=== PATIENT | female | born 1955 | race Caucasian/White ===

== ENCOUNTER → 2018-04-29 07:46 | Outpatient (CLI) | payer OTHER, SELFPAY ==
[2018-04-29 09:17] LABS: Hemoglobin A1c 5.2 % (4.2-6.3)
[2018-04-29 09:22] LABS: Glucose GTT-30 minutes 135 mg/dL (110-170)
[2018-04-29 09:38] LABS: Glucose GTT- Fasting 85 mg/dL (74-106)
[2018-04-29 10:08] LABS: Glucose GTT- 1 Hour 138 mg/dL (120-170)
[2018-04-29 10:18] LABS: Insulin 75GTT - 60 min 128.1 mU/L (Not Estab)
[2018-04-29 10:18] LABS: Insulin 75GTT - 30 MIN 79.7 mU/L (Not Estab.)
[2018-04-29 10:19] LABS: Insulin 75GTT - Fasting 8.7 mU/L (2.6-37.6); Vitamin D,25 Hydroxy 23.2 ng/mL (29.95-100.01)
[2018-04-29 11:33] LABS: Glucose GTT- 2 Hour 99 mg/dL (70-120)
[2018-04-29 11:48] LABS: Insulin 75GTT - 120 min 67.4 mU/L (Not Estab.)
[2018-05-01 03:06] LABS: CHOLESTEROL TOTAL 230 mg/dL (100-199); HDL-C 69 mg/dL (>39); HDL-P TOTAL 39.8 umol/L (>=30.5); SMALL LDL-P 541 nmol/L (<=527); TRIGLYCERIDES 74 mg/dL (0-149)
[2018-05-01 11:11] LABS: LDL SIZE 21.4 nm (>20.5); LDL-C 146 mg/dL (0-99); LDL-P 1902 nmol/L (<1000); LP-IR SCORE ** 36 (<=45)
== END ==
PROVIDERS: Family Provider Nurse Practitioner; PCP Nurse Practitioner; Visit Provider Internal Medicine
DX: E78.4 Other hyperlipidemia (principal); E55.9 Vitamin D deficiency, unspecified; E88.81 Metabolic syndrome and other insulin resistance
CPT/HCPCS: 36415; 80061; 82306; 82951; 82952; 83036; 83525; 83704

== ENCOUNTER → 2018-08-01 10:09 | Outpatient (CLI) | payer OTHER, SELFPAY ==
--- NOTE | 2018-08-01 10:15 | BI_ITS ---
MAMMOGRAPHY - BILATERAL SCREENING REASON FOR EXAM: Female, 63 years old. Routine annual screening examination. PERTINENT HISTORY: Non-contributory. History of chronic bilateral nipple inversion. TECHNIQUE: Digital bilateral breast christen (3D mammographic acquisition) in the CC and MLO projections. 2-D mediolateral oblique (MLO) and craniocaudad (CC) views of both breasts were obtained. CAD: Full Field Digital Mammography with Computer Added Detection was performed. COMPARISON: Comparison is made with prior study dated July 30, 2017 and February 12, 2016. FINDINGS: Breast Composition: There are scattered areas of fibroglandular density. There are no dominant masses or suspicious calcifications. Stable scattered bilateral calcifications. Several of the calcifications of a lucent center suggestive of dural calcification. No other significant abnormalities are identified. There has been no significant change since the prior study. BI/SCREENING MAMM (CAD), BILAT IMPRESSION: Stable bilateral screening mammogram. Yearly follow-up mammogram recommended. (A) ASSESSMENT CATEGORY: BIRADS Category 2: Benign. A letter regarding these results will be sent to the patient by the facility within 30 days. Approximately 10% of breast cancers are not detected by mammography. A normal mammogram should not delay biopsy of a clinically suspicious abnormality. [id number] Electronically Signed: Kemal Lizarraga MD at 11:06 EST Tel [phone], Service support ,
== END ==
PROVIDERS: Family Provider Nurse Practitioner; PCP Nurse Practitioner; Visit Provider Obstetrics & Gynecology
DX: Z12.31 Encounter for screening mammogram for malignant neoplasm of breast (principal); Z13.820 Encounter for screening for osteoporosis
CPT/HCPCS: 77063; 77067

== ENCOUNTER → 2018-08-04 13:52 | Outpatient (CLI) | payer OTHER, SELFPAY ==
--- NOTE | 2018-08-04 14:03 | BD_ITS ---
STUDY: DUAL ENERGY X-RAY ABSORPTIOMETRY / DXA REASON FOR EXAM: Female, 63 years old. The patient is postmenopausal. Loss of height. TECHNIQUE: Bone Mineral Density (BMD) measurements of lumbar spine and bilateral hips were obtained. COMPARISON: Comparison is made with prior study dated April 23, 2016. FINDINGS: Lumbar Spine (L1-L4): g/cm2 (1.176) / T-score (0.1) / Z-score (1.5) Findings are suggestive of normal bone density with a low fracture risk. Left Femur Total: g/cm2 (1.004) / T-score (0.0) / Z-score (1.0) Left Femoral Neck: g/cm2 (1.000) / T-score (-0.3) / Z-score (1.1) Right Femur Total: g/cm2 (0.987) / T-score (-0.2) / Z-score (0.9) Right Femoral Neck: g/cm2 (0.937) / T-score (-0.7) / Z-score (0.6) The T-Scores on the most recent prior examination were: Lumbar Spine (L1-L4): There has been worsening of bone density since the previous examination. Left Femur Total: which represents a worsening of 1.1%. Right Femur Total: which represents a worsening of 1.3%. BD/Dexa Bone Density Study IMPRESSION: The patient is considered normal as outlined below according to World Jesus Organization (WHO) criteria with a low fracture risk. There has been worsening of bone density since the previous examination. Reference Information: The T-score is the number of standard deviations above or below the standard which is normal for young adults at their peak bone mineral density. The World Health Organization (WHO) interprets the T-scores as follows: Above -1 Normal bone density Between -1 and -2.5 Osteopenia Equal to / or below -2.5 Osteoporosis As a practical clinical guideline, osteopenia may be graded as follows: Mild -1 through -1.5 Moderate -1.6 through -2.0 Severe -2.1 through -2.4 The Z-score is the number of standard deviations above or below age-matched controls. A Z-score of less than -1.5 would be considered abnormal. References: 1. NIH Osteoporosis and Related Bone Diseases http://www.osteo.org 2. International Society for Clinical Densitometry http://www.iscd.org 3. National Osteoporosis Foundation http://www.nof.org Electronically Signed: Kemal Lizarraga MD at 15:35 EST Tel [phone], Service support ,
--- OUTSIDE RECORDS SUMMARY | 2018-09-29 18:33 | XMS RPT_ITS ---
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 30 - 100 ng/mL (75 - 250 nmol/L) Toxicity >100 ng/mL (>250 nmol/L) Performed By: #### L503.8055, L506.1000 #### [facility] [address] [place], [place], [id number] NMR LIPOPROFILE Collected: 04/29/2018 Status: F Source: [place] 8:03 AM [facility] [place] REPOSITORY TYPE CODE TESTS RESULT OUT OF RANGE REFERENCE UNITS LAB L3500.0250 LIPIDS Normal . LAB L3500.0300 100-199 mg/dL High CHOLESTEROL TOT 230 LAB L3500.0350 0-99 mg/dL High LDL-C 146 Result Comment: Optimal < 100 Above optimal 100 - 129 Borderline 130 - 159 High 160 - 189 Very high > 189 LDL-C is inaccurate if patient is non-fasting. LAB L3500.0400 >39 mg/dL HDL-C Normal 69 LAB L3500.0450 0-149 mg/dL TRIGLYCERIDES Normal 74 LAB L3500.0560 <1000 nmol/L High LDL-P 1902 Result Comment: Low < 1000 Moderate 1000 - 1299 Borderline-High 1300 - 1599 High 1600 - 2000 Very High > 2000 LAB L3500.0575 Normal LD HD PARTICLES . LAB L3500.0580 >=30.5 umol/L Normal HDL-P TOTAL 39.8 LAB L3500.0585 <=527 nmol/L High SMALL LDL-P 541 LAB L3500.0590 >20.5 nm Normal LDL SIZE 21.4 Result Comment: INTERPRETATIVE INFORMATION PARTICLE CONCENTRATION AND SIZE <--Lower CVD Risk Higher CVD Risk--> LDL AND HDL PARTICLES Percentile in Reference Population HDL-P (total) High 75th 50th 25th Low >34.9 34.9 30.5 26.7 <26.7 Small LDL-P Low 25th 50th 75th High <117 117 527 839 >839 LDL Size <-Large (Pattern A)-> <-Small (Pattern B)-> 23.0 20.6 20.5 19.0 Small LDL-P and LDL Size are associated with CVD risk, but not after LDL-P is taken into account. These assays were developed and their performance characteristics determined by [facility]. These assays have not been cleared by the US Food and Drug Administration. The clinical utility of these laboratory values have not been fully established. LAB L3500.0595 Normal INS RES/DIAB RK . LAB L3500.0875 <=45 Normal LP-IR SCORE 36 Result Comment: INSULIN RESISTANCE MARKER <--Insulin Sensitive Insulin Resistant--> Percentile in Reference Population Insulin Resistance Score LP-IR Score Low 25th 50th 75th High <27 27 45 63 >63 LP-IR Score is inaccurate if patient is non-fasting. The LP-IR score is a laboratory developed index that has been associated with insulin resistance and diabetes risk and should be used as one component of a physician's clinical assessment. The LP-IR score listed above has not been cleared by the US Food and Drug Administration. Performed at: [facility] [address] [id number] Director Corporate Security: Isma Pollard MD, Phone: [phone] Performed By: #### L3500.0000 #### [facility] (refer to report for specific site) refer to report for address and phone number INJ SCLEROSING SOLN, Observed: 09/29/2017 Status: F Source: [facility] 12415 10:50 AM HEALTH SYSTEM REPOSITORY Performed at [facility] APPROVED BY: Sourav Cavazos MD Procedure: Selective sclerotherapy of venulectasias, telangiectasias, and reticular veins in the left lower extremity. Date: 09/29/2017. Indication: 62y/o female with spider veins requesting sclerotherapy for cosmesis. Technique/Findings: Informed consent was obtained from the patient prior to the procedure. The distribution of the spider veins and telangiectasias was reviewed with the patient prior to the procedure to ensure adequate t reatment of the desired/symptomatic areas. The patient was placed in a prone position and the left leg was prepped in a sterile fashion with alcohol. Utilizing a foamed solution of 0.125% polidocanol, selective sclerotherapy was performed targeting the multiple telangiectasias and reticular veins in the left leg. During sclerotherapy there was effective replacement of the blood volume by the sclerotherapy agent at each site. Following sclerotherapy, each injection site was bandaged and dressed in the usual fashion. Compression stocking was then applied to the lower extremity. There were no apparent complications and the p atient tolerated the procedure well. The patient was given home-going instructions, which were reviewed at the end of the procedure. IMPRESSION: Technically successful selective sclerotherapy of the left leg. INJ SCLEROSING SOLN, Observed: 09/22/2017 Status: F Source: [facility]/[place] 52614 1:47 PM HEALTH SYSTEM REPOSITORY Performed at [facility] APPROVED BY: Sourav Cavazos MD Procedure: Selective sclerotherapy of venulectasias, telangiectasias, and reticular veins in the right lower extremity. Date: 09/22/2017. Brief History: 62y/o female requesting sclerotherapy for cosmesis. Technique/Findings: Informed consent was obtained from the patient prior to the procedure. The distribution of the spider veins and telangiectasias was reviewed with the patient prior to the procedure to ensure adequate t reatment of the desired/symptomatic areas. The patient was placed in a prone position and the right leg was prepped in a sterile fashion with alcohol. Utilizing a foamed solution of 0.125% polidocanol, selective sclerotherapy was performed targeting the multiple telangiectasias and reticular veins in the right leg. During sclerotherapy there was effective replacement of the blood volume by the sclerotherapy agent at each site. Following sclerotherapy, each injection site was bandaged and dressed in the usual fashion. Compression stocking was then applied to the lower extremity. There were no apparent complications and the p atient tolerated the procedure well. The patient was given home-going instructions, which were reviewed at the end of the procedure. IMPRESSION: Technically successful selective sclerotherapy of the right leg. ALLERGIES ALLERGIES DATE TYPE / CODE NAME / CODE REACTION SEVERITY SOURCE 08/05/2005 DRUG COPPER [facility] INGREDI/4195 Other [place] [address](SNOM[address]) /[id number] COPPER [facility] (SNOMED CT) Health System Repository ENCOUNTERS ENCOUNTERS ADMIT/DISCHARGE ACCOUNT NUMBER ADMITTING ENCOUNTER LOCATION SOURCE CLASS 08/08/2018 8040 Ambulatory Building:[facility] [place] Practices Repository 08/04/2018 [id number] [facility] ding:OPBD Repository 08/01/2018 [id number] [facility] ding:OPBI Repository 07/11/2018/07/12/20 [id number] Ambulatory [address] Main [place] Repository 04/29/2018 [id number] [facility] ding:LAB Repository 09/29/2017/09/29/19 [id number] Ambulatory [address] Other [place] Repository 09/29/2017/09/29/19 [id number] Ambulatory [address] MEDICAL Repository CENTERBuildi ng:AGCARDVEI N 09/22/2017 [id number] Ambulatory [facility] Repository 09/22/[id number] [facility] MEDICAL Repository CENTERBuildi ng:AGCARDVEI N 09/16/2017 [id number] [facility] ding:MASS Repository FUNCTIONAL STATUS FUNCTIONAL STATUS No Functional Status Records FoundEQUIPMENT EQUIPMENT No Equipment Records FoundPAYERS PAYERS ENCOUNTER GUARANTOR PAYER SUBSCRIBER SOURCE 08/08/2018 Nataly Zamora Primary Nataly Zamora OHIP Practices DeNardoDOB: Insurance:Medical DeNardoDOB: Repository [facility] [id number] [place] Number: [address] [place], [place] [id number] [place], [place] [address]Cpn: ([phone]) Date:[id number] [address]Tai: () Name:[facility] () [address], [place] [id number]: 08/08/2018 Secondary [place] OHIP Practices Insurance:Medical DeNardoDOB: Repository [facility] [id number] Number: [address] [place] [id number] [place], [place] Date:2005-09-06 [address]Afv: 330 [id number] (HP) Name:[facility] [address], [place] [id number]: 08/08/2018 Tertiary [place] OHIP Practices Insurance:[employer] [place] DeNardoDOB: [facility] Number: [id number] [address] [place] [address] Date:2006-01-04 - [place], [place] [id number] [id number]: ([phone]) Name:[address] Box (HP) [id number], [place] [id number]: 08/04/2018 NATALY A Primary NATALY A Luis [id number] Insurance:MEDICAL DENARDODOB: [facility] [id number], [place] Number: Repository [address]Cih: 330 [id number] [phone] () Date:[id number] [address] [address]DJ: 08/04/2018 Secondary NOT GIVENUNK Luis Insurance:SELF PAY [facility] Number: Effective Repository Date:2018-07-14 08/01/2018 Nataly A Primary DAWSON Luis [id number] Insurance:ANTHEMPolic DENARDODOB: [facility] y Number: [id number] [id number] Repository [address]Euk: [phone]) Date:9171-92-32JZ [phone] () [address]UFDSYPN, [place] [address]KJ: 08/01/2018 Secondary NOT GIVENUNK Luis Insurance:SELF PAY [facility] Number: Effective Repository Date:2018-07-14 04/29/2018 Nataly A Primary Nataly A Luis [id number] Insurance:MEDICAL DenardoDOB: [facility] [id number] Number: Repository [id number]: 330 [id number] [phone] () Date:[id number] [address] [address]UU: 04/29/2018 Secondary NOT GIVENUNK Luis Insurance:SELF PAY [facility] Number: Effective Repository Date:2018-04-27 09/29/2017 NATALY A DE Primary Insurance:O NATALY Zamora DE [facility] Number: [id number] Repository [place] [id number] [place], [place] Date: [address]Ryv: () 09/16/2017 Nataly A Primary NOT GIVENUNK Luis [id number] Insurance:SELF PAY [place] Number: Effective Repository [id number]: ([phone]) Date:2014-11-04 () SOCIAL HISTORY SOCIAL HISTORY No Social History Records FoundFAMILY HISTORY FAMILY HISTORY No Family History Records FoundADVANCE DIRECTIVES ADVANCE DIRECTIVES No Advanced Directives Records FoundINFORMATION SOURCE INFORMATION SOURCE DATE CREATED AUTHOR AUTHOR'S ORGANIZATION 08/24/2018 [facility]
== END ==
PROVIDERS: Family Provider Nurse Practitioner; PCP Nurse Practitioner; Visit Provider Obstetrics & Gynecology
DX: Z13.820 Encounter for screening for osteoporosis (principal)
CPT/HCPCS: 77080

== ENCOUNTER → 2019-08-15 12:11 | Outpatient (CLI) | payer BC, SELFPAY ==
--- NOTE | 2019-08-15 12:17 | BI_ITS ---
MAMMOGRAPHY - BILATERAL SCREENING REASON FOR EXAM: Female, 64 years old. Routine annual screening examination. PERTINENT HISTORY: Non-contributory. History of chronic bilateral nipple inversion. TECHNIQUE: Digital bilateral breast chon (3D mammographic acquisition) in the CC and MLO projections. 2-D mediolateral oblique (MLO) and craniocaudad (CC) views of both breasts were obtained. CAD: Full Field Digital Mammography with Computer Added Detection was performed. COMPARISON: Comparison is made with prior study August 01, 2018 and July 30, 2017. FINDINGS: Breast Composition: The breasts are heterogeneously dense, which may obscure small masses. There are no dominant masses or suspicious calcifications. Stable scattered bilateral calcifications. No focal clustering is seen. No other significant abnormalities are identified. There has been no significant change since the prior study. BI/SCREEN MAMM (CAD) W/CHON BILAT IMPRESSION: Stable bilateral screening mammogram. Yearly follow-up mammogram recommended. (A) ASSESSMENT CATEGORY: BIRADS Category 2: Benign. A letter regarding these results will be sent to the patient by the facility within 30 days. Approximately 10% of breast cancers are not detected by mammography. A normal mammogram should not delay biopsy of a clinically suspicious abnormality. [id number] Electronically Signed: Kemal Lizarraga, at 13:09 EST , Service support ,
== END ==
PROVIDERS: Family Provider Nurse Practitioner; PCP Nurse Practitioner; Referring Provider Obstetrics & Gynecology; Visit Provider Obstetrics & Gynecology
DX: Z12.31 Encounter for screening mammogram for malignant neoplasm of breast (principal)
CPT/HCPCS: 77063; 77067

== ENCOUNTER → 2019-12-06 | Outpatient (CLI) | payer BC, SELFPAY ==
--- NOTE | 2019-12-06 07:52 | CT_ITS ---
STUDY: CTA NECK WITH CONTRAST REASON FOR EXAM: Female, 64 years old. Carotid occlusion seen on US. Denies pain or problems. RADIATION DOSAGE (If Supplied By Facility): CTDIvol = ( 16.13 ) mGy, DLP = ( 965.94 ) mGycm TECHNIQUE: CT angiography with multi-detector data acquisition was performed from the aortic arch to the skull base following intravenous administration of 100mL [id number]. MIP images were reconstructed from the axial data set. Post-processing of the angiographic images was performed, with multiplanar reformation and 3D reconstruction. Individualized dose optimization techniques were used for this CT. COMPARISON: None. FINDINGS: AORTIC ARCH: There is atherosclerotic calcific plaque formation of the aortic arch and great vessels arising from the aortic arch, without a hemodynamically significant stenosis. There is a normal origin of the brachiocephalic, left common carotid, and left subclavian arteries. RIGHT CAROTID ARTERIES: Normal right common carotid artery (CCA). Normal right common carotid bulb. There is extensive atherosclerotic plaque formation of the origin of the right internal carotid artery with an estimated stenosis of greater than 70%. Normal visualized cervical portion of the right internal carotid artery. Normal origin of the right external carotid artery (ECA). LEFT CAROTID ARTERIES: Normal left common carotid artery (CCA). Normal left common carotid bulb. There is moderate atherosclerotic plaque formation of the origin of the left internal carotid artery with an estimated stenosis of 50-69% stenosis. Normal visualized cervical portion of the left internal carotid artery. Normal origin of the left external carotid artery (ECA). VERTEBRAL ARTERIES: Normal bilateral vertebral arteries. CT/CTA Neck W/WO Contrast IMPRESSION: Calcific plaques at the origin of the right internal carotid artery causing greater than 70% narrowing. Calcific plaque at the origin of the left internal carotid artery causing 50-69% stenosis. Electronically Signed: Kemal Lizarraga, at 13:39 EDT , Service support ,
[2019-12-06 08:06] LABS: CREATININE FINGERSTICK 0.7 mg/dL (0.55-1.02); EGFR FINGERSTICK > 60.0000 mL/min (>60)
== END | disposition home or self-care (01) ==
LOC: CT 07:51
PROVIDERS: PCP Nurse Practitioner; Referring Provider Internal Medicine; Visit Provider Internal Medicine
DX: I65.23 Occlusion and stenosis of bilateral carotid arteries (principal)
CPT/HCPCS: 70498; Q9967

== ENCOUNTER → 2020-04-05 | Outpatient (CLI) | payer BC, SELFPAY ==
[2020-04-05 09:55] LABS: AST(SGOT) 23 U/L (15-37); Alanine Aminotransfer ALT/SGPT 40 U/L (13-56); Alkaline Phosphatase 70 U/L (45-117); Bilirubin, Direct 0.28 mg/dL (0.00-0.30); Cholesterol 155 mg/dL (200); Globulin 3.6 g/dL (2.2-4.2); High Density Lipoprotein 69 mg/dL; Protein, Total 7.6 g/dL (6.4-8.2); Triglycerides 74 mg/dL; Very Low Density Lipoprotein 15 mg/dL (5-40)
== END | disposition home or self-care (01) ==
LOC: LAB 09:02
PROVIDERS: PCP Internal Medicine; Referring Provider Internal Medicine; Visit Provider Internal Medicine
DX: E78.49 Other hyperlipidemia (principal)
CPT/HCPCS: 36415; 80061; 80076

== ENCOUNTER → 2020-12-10 07:17 | Outpatient (CLI) | payer MEDICARE, SELFPAY ==
[2020-11-25 13:57] VITALS: BMI 25.8
--- NOTE | 2020-12-10 07:24 | BI_ITS ---
MAMMOGRAPHY - BILATERAL SCREENING 3-D TOMOSYNTHESIS REASON FOR EXAM: Female, 65 years old. Routine screening PERTINENT HISTORY: No significant family history. TECHNIQUE: 2-D mammograms and 3-D Tomosynthesis of the breast (s) were performed. CAD was performed. COMPARISON: 08/15/2019 FINDINGS: The breast composition is heterogeneously dense that can obscure small breast masses. Scattered benign calcifications are seen. No dense spiculated masses or suspicious microcalcifications are identified. No architectural distortion is identified. There is no skin thickening or retraction. There has been no significant change since the prior study. BI/SCRN MAMM (CAD)W/CHON BILAT IMPRESSION: No mammographic signs of malignancy. Routine yearly mammograms recommended. ASSESSMENT CATEGORY: BIRADS Category 2: Benign. A letter regarding these results will be sent to the patient by the facility within 30 days. FOLLOW UP RECOMMENDATION: Yearly follow up mammogram recommended. (A) Approximately 10% of breast cancers are not detected by mammography. A normal mammogram should not delay biopsy of a clinically suspicious abnormality. Electronically Signed: Dante Sutherland MD at 9:12 EDT , Service support ,
--- NOTE | 2020-12-10 07:43 | VDLE_ITS ---
Reason For Study: Pain RIGHT LEFT CFV is compressible, spontaneous, phasic, CFV is compressible, spontaneous, phasic, competent and demonstrates normal competent, and demonstrates normal augmentation. augmentation. FV is compressible, spontaneous, phasic, FV is compressible, spontaneous, phasic, competent and demonstrates normal competent and demonstrates normal augmentation. augmentation. POP V is compressible, spontaneous, phasic, POP V is compressible, spontaneous, phasic, competent and demonstrates normal competent and demonstrates normal augmentation. augmentation. T/P Trunk is compressible. T/P Trunk is compressible. PTV is compressible. PTV is compressible. RT PerV is compressible. LT PerV is compressible. SFJ is competent and measures 0.93 x 0.98 cm. SFJ is competent and measures 0.75 x 0.82 cm. GSV proximal thigh measures 0.40 x 0.39 cm. GSV proximal thigh measures 0.48 x 0.45 cm. GSV above knee is INCOMPETENT for greater GSV at knee measures 0.21 x 0.18 cm. than 0.5 seconds. GSV is competent throughout. GSV at knee measures 0.32 x 0.33 cm. SSV at junction is competent and measures GSV below knee is competent. 0.14 x 0.14 cm. SSV proximal calf is competent and measures 0.09 x 0.09 cm. Procedure This is a venous duplex using B-mode, color flow and spectral Doppler. Exam performed in department. VL/Venous Duplex US - Kole Extrem Interpretation Summary No evidence for acute deep venous thrombosis bilateral lower extremities with p atent and compressible bilateral great saphenous veins. Incompetent right great saphenous vein above the knee Competent left great saphenous vein Venous dimensions as noted. Ordering Physician: Salinas Oswald Referring Physician: Salinas Oswald Performed By: Daphne Acosta RVT
--- NOTE | 2020-12-10 07:43 | CDU_ITS ---
Reason For Study: Carotid stenosis Rt. Velocities/BP Lt. Velocities/BP Prox CCA 74.7/14.7 cm/sec. Prox CCA 93/20 cm/sec. Mid CCA 81.2/16 cm/sec. Mid CCA 83.9/20 cm/sec. Dist CCA 78.6/20 cm/sec. Dist CCA 70.8/14.7 cm/sec. Prox ICA 74.7/21.3 cm/sec. Prox ICA 57.5/16.8 cm/sec. Mid ICA 83.9/29.1 cm/sec. Mid ICA 84.9/30 cm/sec. Dist ICA 104.7/30.4 cm/sec. Dist ICA 91.5/34.4 cm/sec. Rt. ICA/CCA = 1.33. Lt. ICA/CCA = 1.09. Prox ECA 85.2/9.5 cm/sec. Prox ECA 56.4/6.9 cm/sec. Rt. Vert. 70.8/21.3 cm/sec. Lt. Vert. 71.7/22.3 cm/sec. Right Extracranial There is homogeneous, smooth atherosclerotic plaque noted in the right common carotid artery. There is heterogeneous, irregular atherosclerotic plaque noted in the right internal carotid artery. There is intimal thickening but no significant atherosclerotic plaque noted in the right external carotid artery. Antegrade flow is noted in the right vertebral artery. Left Extracranial There is homogeneous, smooth atherosclerotic plaque noted in the left common carotid artery. There is heterogeneous, irregular atherosclerotic plaque noted in the left internal carotid artery. There is intimal thickening but no significant atherosclerotic plaque noted in the left external carotid artery. Antegrade flow is noted in the left vertebral artery. Procedure Carotid Duplex 55341. This is a Carotid Duplex examination using B-mode, color flow and specral Doppler. Exam performed in department. VL/Carotid Duplex Ultrasound Interpretation Summary Irregular calcific plague at the proximal right internal carotid with <50% sten osis <50% stenosis right external carotid Irregular calcific plague at the proximal left internal carotid with 50% stenos is <50% stenosis left external carotid Patent, antegrade vertebrals bilaterally No change from 03/26/17 Ordering Physician: Ramsey Starr Referring Physician: Salinas Oswald Performed By: Daphne Acosta RVT
== END ==
PROVIDERS: PCP Internal Medicine; Referring Provider Obstetrics & Gynecology; Visit Provider Surgery
DX: I65.21 Occlusion and stenosis of right carotid artery (principal); I83.813 Varicose veins of bilateral lower extremities with pain; Z12.31 Encounter for screening mammogram for malignant neoplasm of breast
CPT/HCPCS: 77063; 77067; 93880; 93970

== ENCOUNTER → 2020-12-12 08:48 | Outpatient (CLI) | payer MEDICARE, SELFPAY ==
[2020-11-25 13:57] VITALS: BMI 25.8
--- NOTE | 2020-12-12 08:50 | BD_ITS ---
STUDY: DUAL ENERGY X-RAY ABSORPTIOMETRY / DXA REASON FOR EXAM: Female, 65 years old. Post menopausal TECHNIQUE: Bone Mineral Density (BMD) measurements of lumbar spine and bilateral hips were obtained. COMPARISON: Comparison is made with prior study dated 08/04/2018. FINDINGS: Lumbar Spine (L1-L4): g/cm2 (1.295) / T-score (1.0) / Z-score (2.5) Findings are suggestive of normal bone density with a low fracture risk. Left Femur Total: g/cm2 (1.001) / T-score (0.0) / Z-score (1.2) Left Femoral Neck: g/cm2 (1.013) / T-score (-0.2) / Z-score (1.3) Right Femur Total: g/cm2 (0.973) / T-score (-0.3) / Z-score (0.9) Right Femoral Neck: g/cm2 (0.929) / T-score (0.8) / Z-score (0.7) The T-Scores on the most recent prior examination were: Lumbar Spine (L1-L4): There has been worsening of bone density since the previous examination. Left Femur Total: which represents a worsening of 0.3%. Right Femur Total: which represents a worsening of 1.4%. BD/Dexa Bone Density Study IMPRESSION: The patient is considered normal as outlined below according to World Jesus Organization (WHO) criteria with a low fracture risk. There has been worsening of bone density since the previous examination. Reference Information: The T-score is the number of standard deviations above or below the standard which is normal for young adults at their peak bone mineral density. The World Health Organization (WHO) interprets the T-scores as follows: Above -1 Normal bone density Between -1 and -2.5 Osteopenia Equal to / or below -2.5 Osteoporosis As a practical clinical guideline, osteopenia may be graded as follows: Mild -1 through -1.5 Moderate -1.6 through -2.0 Severe -2.1 through -2.4 The Z-score is the number of standard deviations above or below age-matched controls. A Z-score of less than -1.5 would be considered abnormal. References: 1. NIH Osteoporosis and Related Bone Diseases www osteo.org 2. International Society for Clinical Densitometry www iscd.org 3. National Osteoporosis Foundation www nof.org Electronically Signed: Kemal Lizarraga MD at 10:49 EDT , Service support ,
== END ==
PROVIDERS: PCP Internal Medicine; Referring Provider Internal Medicine; Visit Provider Internal Medicine
DX: Z78.0 Asymptomatic menopausal state (principal)
CPT/HCPCS: 77080

== ENCOUNTER → 2020-12-26 07:47 | Outpatient (CLI) | payer MEDICARE, SELFPAY ==
[2020-12-26 07:34] VITALS: BMI 25.9
[2020-12-26 09:16] LABS: Absolute Lymphocyte Count 2.18 X10^3/uL (0.83-4.51); Absolute Neutrophil Count 3.2 X10^3/uL (2.0-7.7); Basophil# 0.09 X10^3/uL; Basophil% 1.3 % (0-1); Eosinophil# 0.82 X10^3/uL; Eosinophils% 11.9 % (0-5); Hematocrit 44.4 % (37-47); Hemoglobin 14.9 g/dL (12.0-15.0); Lymphocyte # 2.18 X10^3/ul (0.83-4.51); Lymphocyte % 31.7 % (19-41); Mean Corp Hgb Conc 33.6 g/dL (32-36); Mean Corpuscular Hgb 30.2 pg (27.0-32.0); Mean Corpuscular Volume 89.9 fL (81-99); Mean Platelet Vol. 9.8 fl (6.2-12.0); Monocyte# 0.56 X10^3/uL; Monocyte% 8.1 % (0-10); NRBC Flagged by Analyzer 0 % (0-5); Neutrophil # 3.22 X10^3/uL (2.7-7.7); Neutrophil % 46.9 % (47-70); Platelet Count 321 K/mm3 (150-450); RBC Distribution Width CV 12.2 % (11.6-14.6); RBC Distribution Width SD 40.6 fl (35.1-43.9); Red Blood Count 4.94 M/mm3 (4.2-5.4); White Blood Count 6.9 K/mm3 (4.4-11.0)
[2020-12-26 09:55] LABS: AST(SGOT) 27 U/L (15-37); Alanine Aminotransfer ALT/SGPT 50 U/L (13-56); Albumin, Serum 3.9 g/dL (3.2-5.0); Alkaline Phosphatase 82 U/L (45-117); Anion Gap 4 (5-15); BUN 14 mg/dL (7-18); BUN/Creat Ratio 22.1 RATIO (10-20); Calcium,Total 9.1 mg/dL (8.5-10.1); Chloride 106 mmol/L (98-107); Cholesterol 194 mg/dL (200); Creatinine, Serum 0.63 mg/dL (0.55-1.02); EST Glomerular Filtration Rate 100 mL/min (>60); Est Glom Filt Rate - Afr Amer 121 mL/min (>60); Globulin 3.9 g/dL (2.2-4.2); Glucose 86 mg/dL (74-106); High Density Lipoprotein 78 mg/dL; Potassium 4.5 mmol/L (3.5-5.1); Protein, Total 7.8 g/dL (6.4-8.2); Sodium Level 140 mmol/L (136-145); Triglycerides 102 mg/dL; Very Low Density Lipoprotein 20 mg/dL (5-40)
[2020-12-26 11:30] LABS: Vitamin D,25 Hydroxy 22.8 ng/mL
== END ==
PROVIDERS: PCP Internal Medicine; Referring Provider Internal Medicine; Visit Provider Internal Medicine
DX: E55.9 Vitamin D deficiency, unspecified (principal); E78.5 Hyperlipidemia, unspecified
CPT/HCPCS: 36415; 80053; 80061; 82306; 85025

== ENCOUNTER 2021-01-17 08:47 | Day surgery (SDC) | payer MEDICARE, SELFPAY ==
[2020-11-25 13:57] VITALS: BMI 25.8
[2020-12-26 07:34] VITALS: BMI 25.9
[2021-01-17] VITALS (7 sets, daily range): BP systolic 118–139; BP diastolic 60–73; PULSE 57–71; RESP 16; TEMP 36.3–36.5; O2SAT 99–100; BMI 25.6
[2021-01-17] MEDS: Lactated Ringers 1,000 ML 100 ML IV (09:21)
--- NOTE | 2021-01-17 10:17 | PCM.HP.STD ---
HPI - General HPI Narrative JANICE DUTTON, is a 65 F who presents for screening colonoscopy today. Her previous one was approximately 5 years ago. She has a personal history of colon polyps. There is no family history of colon cancer. She otherwise enjoys good health. No bright red blood per rectum or melena. No abdominal pain. No unexpected weight loss. [facility] Medical History (Updated 01/17/21 @ 10:[address] Ramsey Starr MD) Anxiety Arthritis Bilateral carotid artery stenosis Carpal tunnel syndrome Diverticulosis Hyperlipemia Hyperlipidemia Post-menopausal Restless legs Stenosis of left carotid artery Varicose veins of both lower extremities with pain Vitamin D deficiency Wears contact lenses Wears glasses Home Medications aspirin 81 mg tablet,delayed release 81 mg PO DAILY 11/25/20 [History Last Taken Unknown] coenzyme Q10 100 mg capsule 100 mg PO DAILY 11/25/20 [History Last Taken Unknown] magnesium oxide 400 mg (241.3 mg magnesium) tablet 400 mg PO BID tablet 11/25/20 [History Last Taken Unknown] multivitamin 1 tablet PO DAILY 11/25/20 [History Last Taken Unknown] rosuvastatin 10 mg tablet 10 mg PO DAILY 11/25/20 [History Last Taken Unknown] turmeric root extract 1,053 mg tablet 2,600 mg PO DAILY tablet 11/25/20 [History Last Taken Unknown] terbinafine HCl 250 mg PO DAILY 01/14/21 [History Last Taken Unknown] Allergy/AdvReac Type Severity Reaction Status Date / Time copper Allergy Mild unknown Verified 01/17/21 09:12 Family History Father Brain aneurysm Other Anxiety Diabetes Kidney disease Surgical History (Updated 01/14/21 @ 10:02 by Teresita Michael) History of tubal ligation Hx of [facility] Social History (Updated 12/26/20 @ 08:[address] Ramsey Starr MD) Smoking Status: Never smoker alcohol intake: never substance use type: does not use caffeine: Yes what type of physical activity do you participate in: walking, bicycling and aerobics frequency: 3-4 times per week ROS Constitutional Constitutional: Reports systems reviewed and no addt'l complaints, except as documented Cardiovascular Cardiovascular: Denies chest pain Respiratory/Chest Respiratory/Chest: Denies shortness of breath at rest Gastrointestinal Gastrointestinal: Denies abdominal pain, change in bowel habits, hematochezia or melena Vital Signs Vital Signs Vital Signs: 01/17/21 09:13 Temperature 97.7 F L Temperature Source Temporal Pulse Rate 67 Respiratory Rate 16 Respiratory Pattern Normal Blood Pressure 130/68 H Blood Pressure Mean 88 Blood Pressure Source Monitor Blood Pressure Position Semi-Fowlers Blood Pressure Location Right Arm Pulse Ox 99 Oxygen Delivery Method Room Air Physical Exam Const alert, oriented x3 and no apparent distress General Appearance: cooperative and comfortable Eyes General Eye: normal appearance of both eyes Neck General: normal visual inspection Chest inspection of chest normal Resp Effort and Inspection: able to speak in complete sentences and symmetric chest movement Auscultation: clear to auscultation bilaterally Cardio regular rate and regular rhythm GI soft to palpation, non-tender and non-distended Extremity no calf tenderness Neuro oriented x3 Psych thought process normal Assessment & Plan Assessment/Plan (1) Personal history of colonic polyps: PLAN: The patient presents via open access to pursue a colonoscopy with possible biopsy or polypectomy as indicated. She is aware of the technique, benefit, risk, alternatives. She has had an opportunity to ask and have questions answered. We will proceed as noted. Ramsey Starr M.D., F.A.C.S.
--- NOTE | 2021-01-17 10:41 | OP.CCLET_ITS ---
01/17/2021 Salinas Oswald MD [address] [place] [address] [place] [address] Re : Colonoscopy procedure for Nataly Elise Dear Dr. Oswald This procedure was performed on Sunday, January 17, 2021. My impressions and recommendations are as follows: Impressions : - The entire examined colon is normal. - No specimens collected. Recommendations : - Discharge patient to home. - Resume previous diet. - Continue present medications. - Repeat colonoscopy in 10 years for screening purposes. No polyps on current examination. My findings are described in the full procedure note, which is enclosed. If I can be of further assistance, please feel free to contact me at Doctor phone number(s): Work: . Sincerely, Ramsey Starr MD 01/17/2021 10:40:55 AM This report has been signed electronically.
--- NOTE | 2021-01-17 10:41 | OP.COLON_ITS ---
Patient Name: Nataly Elise Procedure Date: 01/17/2021 10:14 AM Date of : 1955 Age: 65 Procedure: Colonoscopy Indications: High risk colon cancer surveillance: Personal history of colonic polyps Providers: Ramsey Starr MD Medicines: See the Anesthesia note for documentation of the administered medications Patient Profile: Last Colonoscopy: 5 years ago. Complications: No immediate complications. Procedure: Pre-Anesthesia Assessment: - Prior to the procedure, a History and Physical was performed, and patient medications and allergies were reviewed. The patient's tolerance of previous anesthesia was also reviewed. The risks and benefits of the procedure and the sedation options and risks were discussed with the patient. All questions were answered, and informed consent was obtained. Prior Anticoagulants: The patient has taken no previous anticoagulant or antiplatelet agents. ASA Grade Assessment: II - A patient with mild systemic disease. After reviewing the risks and benefits, the patient was deemed in satisfactory condition to undergo the procedure. After I obtained informed consent, the scope was passed under direct vision. Throughout the procedure, the patient's blood pressure, pulse, and oxygen saturations were monitored continuously. The Colonoscope was introduced through the anus and advanced to the cecum, identified by appendiceal orifice and ileocecal valve. The colonoscopy was performed without difficulty. The patient tolerated the procedure well. The quality of the bowel preparation was good. The ileocecal valve and the appendiceal orifice were photographed. Scope In: 10:24:34 AM Scope Withdrawal Time 0 hours 6 minutes 17 seconds Scope Out: 10:36:36 AM Total Procedure Duration Time 0 hours 12 minutes 2 seconds Findings: The perianal and digital rectal examinations were normal. The colon (entire examined portion) appeared normal. Impression: - The entire examined colon is normal. - No specimens collected. Recommendation: - Discharge patient to home. - Resume previous diet. - Continue present medications. - Repeat colonoscopy in 10 years for screening purposes. No polyps on current examination. Procedure Code(s): --- Professional --- 99776, Colonoscopy, flexible; diagnostic, including collection of specimen(s) by brushing or washing, when performed (separate procedure) Diagnosis Code(s): --- Professional --- Z86.010, Personal history of colonic polyps CPT copyright 2017 [employer]. All rights reserved. The codes documented in this report are preliminary and upon heavy equipment plumbing supervisor review may be revised to meet current compliance requirements. Ramsey Starr MD 01/17/2021 10:40:55 AM This report has been signed electronically. Number of Addenda: 0 Note Initiated On: 01/17/2021 10:14 AM
== END 2021-01-17 11:48 ==
LOC: EN 08:48 → AC 08:50
PROVIDERS: PCP Internal Medicine; Referring Provider Internal Medicine; Visit Provider Surgery
PROC: 0DJD8ZZ Inspection of Lower Intestinal Tract, Via Natural or Artificial Opening Endoscopic (ICD-10-PCS; CPT 45378; principal; 2021-01-17 10:10)
DX: Z12.11 Encounter for screening for malignant neoplasm of colon (principal); Z86.010 Personal history of colon polyps; M19.90 Unspecified osteoarthritis, unspecified site; E78.5 Hyperlipidemia, unspecified; Z79.899 Other long term (current) drug therapy; Z79.82 Long term (current) use of aspirin
CPT/HCPCS: G0105; J7120; J2405

== ENCOUNTER → 2021-02-10 09:15 | Outpatient (CLI) | payer MEDICARE, SELFPAY ==
[2021-01-17 09:13] VITALS: BMI 25.6
[2021-02-10 10:06] LABS: AST(SGOT) 18 U/L (15-37); Alanine Aminotransfer ALT/SGPT 28 U/L (13-56); Albumin, Serum 3.7 g/dL (3.2-5.0); Alkaline Phosphatase 90 U/L (45-117); Bilirubin, Direct 0.23 mg/dL (0.00-0.30); Globulin 3.8 g/dL (2.2-4.2); Protein, Total 7.5 g/dL (6.4-8.2)
== END ==
PROVIDERS: PCP Internal Medicine; Referring Provider Podiatrist; Visit Provider Podiatrist
DX: B35.1 Tinea unguium (principal); B35.3 Tinea pedis
CPT/HCPCS: 36415; 80076

== ENCOUNTER → 2021-07-15 06:53 | Outpatient (CLI) | payer MEDICARE, SELFPAY ==
[2021-07-15 08:58] LABS: ALB/GLOB Ratio 0.9 RATIO (0.9-2.4); AST(SGOT) 19 U/L (15-37); Alanine Aminotransfer ALT/SGPT 32 U/L (13-56); Albumin, Serum 3.6 g/dL (3.2-5.0); Alkaline Phosphatase 73 U/L (45-117); Anion Gap 4 (5-15); BUN 15 mg/dL (7-18); BUN/Creat Ratio 22.9 RATIO (10-20); Calcium,Total 9.4 mg/dL (8.5-10.1); Chloride 107 mmol/L (98-107); Cholesterol 192 mg/dL (200); Creatinine, Serum 0.66 mg/dL (0.55-1.02); EST Glomerular Filtration Rate 96 mL/min (>60); Est Glom Filt Rate - Afr Amer 116 mL/min (>60); Globulin 4.1 g/dL (2.2-4.2); Glucose 90 mg/dL (74-106); High Density Lipoprotein 74 mg/dL; Potassium 4.2 mmol/L (3.5-5.1); Protein, Total 7.7 g/dL (6.4-8.2); Sodium Level 140 mmol/L (136-145); Triglycerides 102 mg/dL; Very Low Density Lipoprotein 20 mg/dL (5-40)
[2021-07-15 09:33] LABS: Vitamin D,25 Hydroxy 24.7 ng/mL
== END ==
PROVIDERS: PCP Internal Medicine; Referring Provider Internal Medicine; Visit Provider Internal Medicine
DX: E55.9 Vitamin D deficiency, unspecified (principal); E78.5 Hyperlipidemia, unspecified
CPT/HCPCS: 36415; 80053; 80061; 82306

== ENCOUNTER → 2022-01-14 | Outpatient (CLI) | payer MEDICARE, OTHER, SELFPAY ==
[2022-01-14 17:02] LABS: Absolute Lymphocyte Count 2.21 X10^3/uL (0.83-4.51); Absolute Neutrophil Count 4.1 X10^3/uL (2.0-7.7); Basophil# 0.07 X10^3/uL; Basophil% 0.9 % (0-1); Eosinophil# 0.66 X10^3/uL; Eosinophils% 8.6 % (0-5); Hematocrit 39.9 % (37-47); Hemoglobin 13.6 g/dL (12.0-15.0); Lymphocyte # 2.21 X10^3/ul (0.83-4.51); Lymphocyte % 28.8 % (19-41); Mean Corp Hgb Conc 34.1 g/dL (32-36); Mean Corpuscular Hgb 30.2 pg (27.0-32.0); Mean Corpuscular Volume 88.7 fL (81-99); Mean Platelet Vol. 9.7 fl (6.2-12.0); Monocyte% 7.8 % (0-10); NRBC Flagged by Analyzer 0 % (0-5); Neutrophil # 4.11 X10^3/uL (2.7-7.7); Neutrophil % 53.6 % (47-70); Platelet Count 317 K/mm3 (150-450); RBC Distribution Width CV 12.3 % (11.6-14.6); RBC Distribution Width SD 39.8 fl (35.1-43.9); White Blood Count 7.7 K/mm3 (4.4-11.0)
[2022-01-14 17:09] LABS: AST(SGOT) 28 U/L (15-37); Alanine Aminotransfer ALT/SGPT 37 U/L (13-56); Albumin, Serum 3.7 g/dL (3.2-5.0); Alkaline Phosphatase 67 U/L (45-117); Anion Gap 6 (5-15); BUN 13 mg/dL (7-18); BUN/Creat Ratio 21.8 RATIO (10-20); Calcium,Total 9.6 mg/dL (8.5-10.1); Chloride 104 mmol/L (98-107); Cholesterol 172 mg/dL (200); EST Glomerular Filtration Rate 107 mL/min (>60); Est Glom Filt Rate - Afr Amer 130 mL/min (>60); Globulin 3.8 g/dL (2.2-4.2); Glucose 92 mg/dL (74-106); High Density Lipoprotein 68 mg/dL; Potassium 3.9 mmol/L (3.5-5.1); Protein, Total 7.5 g/dL (6.4-8.2); Sodium Level 137 mmol/L (136-145); Triglycerides 108 mg/dL; Very Low Density Lipoprotein 22 mg/dL (5-40)
[2022-01-14 17:28] LABS: Vitamin D,25 Hydroxy 37.3 ng/mL
== END | disposition home or self-care (01) ==
LOC: BIMLAB 15:50
PROVIDERS: PCP Internal Medicine; Referring Provider Internal Medicine; Visit Provider Internal Medicine
DX: E78.2 Mixed hyperlipidemia (principal); E55.9 Vitamin D deficiency, unspecified
CPT/HCPCS: 36415; 80053; 80061; 82306; 85025

== ENCOUNTER → 2022-04-22 | Outpatient (CLI) | payer MEDICARE, OTHER, SELFPAY ==
--- NOTE | 2022-04-22 13:38 | BI_ITS ---
MAMMOGRAPHY - BILATERAL SCREENING 3-D TOMOSYNTHESIS REASON FOR EXAM: Female, 66 years old. SCREENING PERTINENT HISTORY: No significant family history. TECHNIQUE: 2-D mammograms and 3-D Tomosynthesis of the breast (s) were performed. CAD was performed. COMPARISON: 12/10/2020 FINDINGS: The breast composition is heterogeneously dense that can obscure small breast masses. Scattered benign calcifications are seen. No dense spiculated masses or suspicious microcalcifications are identified. No architectural distortion is identified. There is no skin thickening or retraction. There has been no significant change since the prior study. BI/SCRN MAMM (CAD)W/CHON BILAT IMPRESSION: No mammographic signs of malignancy. Routine yearly mammograms recommended. ASSESSMENT CATEGORY: BIRADS Category 1: Negative. A letter regarding these results will be sent to the patient by the facility within 30 days. FOLLOW UP RECOMMENDATION: Yearly follow up mammogram recommended. (A) Approximately 10% of breast cancers are not detected by mammography. A normal mammogram should not delay biopsy of a clinically suspicious abnormality. Electronically Signed: Saurav Villafuerte MD at 14:33 EDT ,
== END | disposition home or self-care (01) ==
PROVIDERS: PCP Internal Medicine; Visit Provider Obstetrics & Gynecology
DX: Z12.31 Encounter for screening mammogram for malignant neoplasm of breast (principal)
CPT/HCPCS: 77063; 77067

== ENCOUNTER → 2022-05-19 | Outpatient (CLI) | payer MEDICARE, OTHER, SELFPAY ==
[2022-05-19 12:18] LABS: Absolute Lymphocyte Count 1.52 X10^3/uL (0.83-4.51); Absolute Neutrophil Count 4.2 X10^3/uL (2.0-7.7); Basophil# 0.04 X10^3/uL; Basophil% 0.6 % (0-1); Eosinophil# 0.11 X10^3/uL; Eosinophils% 1.6 % (0-5); Hematocrit 42.3 % (37-47); Hemoglobin 14.2 g/dL (12.0-15.0); Lymphocyte # 1.52 X10^3/ul (0.83-4.51); Lymphocyte % 21.7 % (19-41); Mean Corp Hgb Conc 33.6 g/dL (32-36); Mean Corpuscular Hgb 30.6 pg (27.0-32.0); Mean Corpuscular Volume 91.2 fL (81-99); Mean Platelet Vol. 10.2 fl (6.2-12.0); Monocyte# 1.16 X10^3/uL; Monocyte% 16.5 % (0-10); NRBC Flagged by Analyzer 0 % (0-5); Neutrophil # 4.18 X10^3/uL (2.7-7.7); Neutrophil % 59.5 % (47-70); Platelet Count 259 K/mm3 (150-450); RBC Distribution Width CV 12.3 % (11.6-14.6); RBC Distribution Width SD 40.8 fl (35.1-43.9); Red Blood Count 4.64 M/mm3 (4.2-5.4)
[2022-05-19 12:45] LABS: ALB/GLOB Ratio 0.9 RATIO (0.9-2.4); AST(SGOT) 22 U/L (15-37); Alanine Aminotransfer ALT/SGPT 31 U/L (13-56); Albumin, Serum 3.5 g/dL (3.2-5.0); Alkaline Phosphatase 63 U/L (45-117); Anion Gap 8 (5-15); BUN 9 mg/dL (7-18); BUN/Creat Ratio 11.1 RATIO (10-20); Calcium,Total 9.3 mg/dL (8.5-10.1); Chloride 102 mmol/L (98-107); Cholesterol 143 mg/dL (200); Creatinine, Serum 0.81 mg/dL (0.55-1.02); EST Glomerular Filtration Rate 75 mL/min (>60); Est Glom Filt Rate - Afr Amer 91 mL/min (>60); Globulin 4.1 g/dL (2.2-4.2); Glucose 93 mg/dL (74-106); High Density Lipoprotein 68 mg/dL; Potassium 4.2 mmol/L (3.5-5.1); Protein, Total 7.6 g/dL (6.4-8.2); Sodium Level 137 mmol/L (136-145); Triglycerides 81 mg/dL; Very Low Density Lipoprotein 16 mg/dL (5-40)
== END | disposition home or self-care (01) ==
PROVIDERS: PCP Internal Medicine; Referring Provider Internal Medicine; Visit Provider Internal Medicine
DX: I65.22 Occlusion and stenosis of left carotid artery (principal); E78.5 Hyperlipidemia, unspecified; R09.81 Nasal congestion
CPT/HCPCS: 36415; 80053; 80061; 85025; 87635; U0003; U0005

== ENCOUNTER → 2023-02-09 | Outpatient (CLI) | payer MEDICARE, OTHER, SELFPAY ==
--- NOTE | 2023-02-09 14:52 | CDU_ITS ---
Reason For Study: Carotid Artery Stenosis Rt. Velocities/BP Lt. Velocities/BP Prox CCA 85.1/13.9 cm/sec. Prox CCA 64.1/15.7 cm/sec. Mid CCA 79.0/15.1 cm/sec. Mid CCA 82.8/20.1 cm/sec. Dist CCA 60.7/13.5 cm/sec. Dist CCA 71.8/20.1 cm/sec. Prox ICA 67.4/23.0 cm/sec. Prox ICA 45.8/15.2 cm/sec. Mid ICA 82.5/26.7 cm/sec. Mid ICA 66.6/22.1 cm/sec. Dist ICA 104.7/34.4 cm/sec. Dist ICA 76.1/22.1 cm/sec. Rt. ICA/CCA = 1.3. Lt. ICA/CCA = 0.9. Prox ECA 89.1/10.7 cm/sec. Prox ECA 87.2/10.2 cm/sec. Rt. Vert. 49.3/11.6 cm/sec. Lt. Vert. 38.9/10.1 cm/sec. Right Extracranial There is heterogeneous, smooth atherosclerotic plaque noted in the right common carotid artery. There is intimal thickening but no significant atherosclerotic plaque noted in the right internal carotid artery. There is intimal thickening but no significant atherosclerotic plaque noted in the right external carotid artery. Antegrade flow is noted in the right vertebral artery. There is heterogeneous, irregular atherosclerotic plaque noted in the right bulb. Left Extracranial There is homogeneous, smooth atherosclerotic plaque noted in the left common carotid artery. There is heterogeneous, irregular atherosclerotic plaque noted in the left internal carotid artery. There is intimal thickening but no significant atherosclerotic plaque noted in the left external carotid artery. Antegrade flow is noted in the left vertebral artery. There is heterogeneous, irregular atherosclerotic plaque noted in the left bulb. Procedure Carotid Duplex 35696. This is a Carotid Duplex examination using B-mode, color flow and specral Doppler. The exam was diagnostic. Exam performed in department. VL/Carotid Duplex Ultrasound Interpretation Summary Irregular calcific plaque at the distal right carotid bulb proximal internal ca rotid artery with less than 50% stenosis. Less than 50% stenosis right external carotid artery Irregular calcific plaque of the left internal carotid artery with shadowing no chaz. Less than 50% stenosis of the left internal carotid artery. Less than 50% stenosis left external carotid artery Patent and antegrade vertebral arteries bilaterally No change from the previous examination of December 10, 2020 Ordering Physician: Ramsey Starr Referring Physician: Ramsey Starr Performed By: Mario Hazel RVT
== END | disposition home or self-care (01) ==
LOC: CVS 14:51
PROVIDERS: PCP Internal Medicine; Referring Provider Surgery; Visit Provider Surgery
DX: I65.23 Occlusion and stenosis of bilateral carotid arteries (principal)
CPT/HCPCS: 93880

== ENCOUNTER → 2023-02-10 | Outpatient (CLI) | payer MEDICARE, OTHER, SELFPAY ==
[2023-02-10 10:45] LABS: Bacteria 0 SEEN /hpf (None Seen); Mucous, Urine 0 SEEN /hpf (<or=2+); Red Blood Cells-Urine 0 SEEN /hpf (0-5)
[2023-02-10 12:12] LABS: Color, Urine Yellow (Yellow); Glucose, Dipstick Normal (Normal); Ketone-Dipstick Negative (Negative); Leukocyte Esterase-Dipstick 25 /ul (Negative); Nitrite-Dipstick Negative (Negative); Occult Blood-Urine 10 /ul (Negative); Protein-Dipstick Negative (Negative); Specific Gravity, Urine 1.015 (1.002-1.030); Urine Bilirubin Dipstick Negative (Negative); Urine Clarity Clear (Clear); Urine Urobilinogen Normal (Normal); Urine pH 6.5 (5.0 - 8.0)
[2023-02-10 12:14] LABS: Absolute Lymphocyte Count 1.91 X10^3/uL (0.83-4.51); Absolute Neutrophil Count 4.4 X10^3/uL (2.0-7.7); Basophil# 0.06 X10^3/uL; Basophil% 0.8 % (0-1); Eosinophil# 0.72 X10^3/uL; Eosinophils% 9.3 % (0-5); Hematocrit 45.1 % (37-47); Hemoglobin 14.9 g/dL (12.0-15.0); Lymphocyte # 1.91 X10^3/ul (0.83-4.51); Lymphocyte % 24.6 % (19-41); Mean Corpuscular Hgb 29.7 pg (27.0-32.0); Mean Corpuscular Volume 89.8 fL (81-99); Mean Platelet Vol. 9.5 fl (6.2-12.0); Monocyte# 0.63 X10^3/uL; Monocyte% 8.1 % (0-10); NRBC Flagged by Analyzer 0 % (0-5); Neutrophil # 4.43 X10^3/uL (2.7-7.7); Neutrophil % 57.1 % (47-70); Platelet Count 309 K/mm3 (150-450); RBC Distribution Width CV 12.5 % (11.6-14.6); RBC Distribution Width SD 40.8 fl (35.1-43.9); Red Blood Count 5.02 M/mm3 (4.2-5.4); White Blood Count 7.8 K/mm3 (4.4-11.0)
[2023-02-10 12:24] LABS: Squamous Epithelial Cells - UA 0-5 SEEN /hpf (5-10); White Blood Cells 0-5 SEEN /hpf (0-5)
[2023-02-10 12:41] LABS: Hemoglobin A1c 5.4 % (3.8-5.6)
[2023-02-10 13:26] LABS: Erythrocyte Sedimentation Rate 2 mm/hr (0-30)
[2023-02-10 14:25] LABS: Vitamin B12 461 pg/mL (211-911); Vitamin D,25 Hydroxy 36.5 ng/mL
[2023-02-10 14:35] LABS: AST(SGOT) 22 U/L (15-37); Alanine Aminotransfer ALT/SGPT 42 U/L (13-56); Albumin, Serum 3.8 g/dL (3.2-5.0); Alkaline Phosphatase 76 U/L (45-117); Anion Gap 5 (5-15); BUN 12 mg/dL (7-18); BUN/Creat Ratio 20.8 RATIO (10-20); CRP < 2.90 mg/L (0.0-3.0); Calcium,Total 9.5 mg/dL (8.5-10.1); Chloride 107 mmol/L (98-107); Cholesterol 180 mg/dL (200); Creatinine, Serum 0.58 mg/dL (0.55-1.02); EST Glomerular Filtration Rate 111 mL/min (>60); Est Glom Filt Rate - Afr Amer 134 mL/min (>60); Globulin 3.9 g/dL (2.2-4.2); Glucose 81 mg/dL (74-106); High Density Lipoprotein 79 mg/dL; Protein, Total 7.7 g/dL (6.4-8.2); Sodium Level 139 mmol/L (136-145); Triglycerides 91 mg/dL; Very Low Density Lipoprotein 18 mg/dL (5-40)
== END | disposition home or self-care (01) ==
PROVIDERS: PCP Internal Medicine; Referring Provider Nurse Practitioner Family; Visit Provider Nurse Practitioner Family
DX: Z00.00 Encounter for general adult medical examination without abnormal findings (principal); R73.09 Other abnormal glucose; E55.9 Vitamin D deficiency, unspecified; E78.5 Hyperlipidemia, unspecified; M19.90 Unspecified osteoarthritis, unspecified site
CPT/HCPCS: 36415; 80053; 80061; 81001; 82306; 82607; 83036; 85025; 85652; 86140

== ENCOUNTER → 2023-02-18 | Outpatient (CLI) | payer MEDICARE, OTHER, SELFPAY ==
[2023-02-18 15:09] LABS: Bacteria 0 SEEN /hpf (None Seen); Mucous, Urine 0 SEEN /hpf (<or=2+); Red Blood Cells-Urine 0 SEEN /hpf (0-5); Squamous Epithelial Cells - UA 0 SEEN /hpf (5-10); White Blood Cells 0 SEEN /hpf (0-5)
[2023-02-18 16:39] LABS: Color, Urine Yellow (Yellow); Glucose, Dipstick Normal (Normal); Ketone-Dipstick Negative (Negative); Leukocyte Esterase-Dipstick Negative /ul (Negative); Nitrite-Dipstick Negative (Negative); Occult Blood-Urine 10 /ul (Negative); Protein-Dipstick Negative (Negative); Urine Bilirubin Dipstick Negative (Negative); Urine Clarity Clear (Clear); Urine Urobilinogen Normal (Normal)
== END | disposition home or self-care (01) ==
LOC: LABSPEC 15:08
PROVIDERS: PCP Internal Medicine; Referring Provider Internal Medicine; Visit Provider Internal Medicine
DX: R10.9 Unspecified abdominal pain (principal)
CPT/HCPCS: 81001

== ENCOUNTER → 2023-02-23 | Outpatient (CLI) | payer MEDICARE, OTHER, SELFPAY ==
--- NOTE | 2023-02-23 12:49 | CT_ITS ---
STUDY: CT ABDOMEN AND PELVIS WITHOUT CONTRAST REASON FOR EXAM: Female, 67 years old. Right Flank pain RADIATION DOSAGE (If Supplied By Facility): CTDIvol = ( 10.50 ) mGy, DLP = ( 459.43 ) mGycm TECHNIQUE: Transaxial images were obtained from the dome of the diaphragm to the symphysis pubis without oral contrast, and without intravenous contrast. Sagittal and coronal images were reconstructed. Individualized dose optimization techniques were used for this CT. COMPARISON: None. FINDINGS: The visualized lung bases are unremarkable. The visualized portions of the heart are within normal limits. Normal liver. Normal gallbladder and extrahepatic biliary system. Normal spleen. Normal pancreas. Normal bilateral adrenal glands. Hydronephrosis of the right kidney with right hydroureter. Up to 5 mm nonobstructive calculi in the left kidney. Normal visualized stomach. Normal small intestine. Normal colon. The appendix is visualized and appears normal. Normal abdominal aorta. Normal inferior vena cava. Normal retroperitoneum. There is a 4 mm stone at the right UVJ of the urinary bladder. Normal abdominal wall. Degenerative vertebral changes and mild scoliosis. CT/Abdomen/Pelvis without Cont IMPRESSION: Left renal calculi. Right hydronephrosis and right hydroureter with an obstructing stone at the right UVJ. Electronically Signed: Austin Jordan DO at 17:33 EDT ,
== END | disposition home or self-care (01) ==
LOC: CT 12:48
PROVIDERS: PCP Internal Medicine; Referring Provider Internal Medicine; Visit Provider Internal Medicine
DX: R10.9 Unspecified abdominal pain (principal)
CPT/HCPCS: 74176

== ENCOUNTER → 2023-02-26 | Outpatient (CLI) | payer MEDICARE, OTHER, SELFPAY ==
--- NOTE | 2023-02-26 09:37 | RAD_ITS ---
INDICATION: KUB- STONES EXAMINATION/TECHNIQUE: X-RAY - XR Abdomen 1 View COMPARISON: CT abdomen and pelvis 02/23/2023 FINDINGS: 4 mm calcific density in the right pelvis corresponds to the stone at the right ureterovesical junction shown on the recent CT abdomen and pelvis, and is unchanged location. Other calcifications in the pelvis are phleboliths. Faint tiny calcific density overlying the left kidney likely renal calculus. Limited by overlying bowel. The bowel gas pattern is normal. There is no bowel obstruction. Degenerative changes of the hips and lumbar spine. Lung bases are not well assessed. RAD/Abdomen Single View IMPRESSION: 4 mm calcification corresponding to distal ureteral calculus at the UVJ, unchanged compared to recent CT abdomen and pelvis. Electronically Signed: Jazmin Medellin MD at 21:54 EDT ,
== END | disposition home or self-care (01) ==
LOC: MTRAD 09:32
PROVIDERS: PCP Internal Medicine; Referring Provider Urology; Visit Provider Urology
DX: N20.0 Calculus of kidney (principal)
CPT/HCPCS: 74018

== ENCOUNTER → 2023-03-17 | Outpatient (CLI) | payer MEDICARE, OTHER, SELFPAY ==
--- NOTE | 2023-03-17 16:19 | RAD_ITS ---
STUDY: X-RAY - ABDOMEN/PELVIS REASON FOR EXAM: Female, 67 years old. STONES -- KUB TECHNIQUE: Single AP view of the abdomen / pelvis. COMPARISON: 02/26/2023, 02/23/2023 CT abdomen and pelvis FINDINGS: Normal visualized lung bases. There is an unremarkable bowel gas pattern. There is no demonstrated free abdominal air. The visualized liver, spleen and kidneys are grossly normal in size and morphology. Faint calcifications overlie the expected location of the right renal pelvis and left renal contour with underlying nephrolithiasis not excluded. Normal soft tissue structures. There are diffuse degenerative changes of the visualized lumbar spine. RAD/Abdomen Single View IMPRESSION: Likely overlying left renal nephrolithiasis with question of right punctate nephrolithiasis, further more definitive characterization consider cross-sectional CT imaging. Electronically Signed: Karan Heller DO at 16:43 EDT ,
== END | disposition home or self-care (01) ==
LOC: MTRAD 16:17
PROVIDERS: PCP Internal Medicine; Referring Provider Urology; Visit Provider Urology
DX: N20.0 Calculus of kidney (principal); N20.1 Calculus of ureter
CPT/HCPCS: 74018

== ENCOUNTER → 2023-04-06 | Outpatient (CLI) | payer MEDICARE, OTHER, SELFPAY ==
[2023-04-06 09:54] LABS: Hematocrit 41.1 % (37-47); Hemoglobin 14.5 g/dL (12.0-15.0); Mean Corp Hgb Conc 35.3 g/dL (32-36); Mean Corpuscular Hgb 31.1 pg (27.0-32.0); Mean Corpuscular Volume 88.2 fL (81-99); Mean Platelet Vol. 9.7 fl (6.2-12.0); Platelet Count 299 K/mm3 (150-450); RBC Distribution Width CV 12.5 % (11.6-14.6); RBC Distribution Width SD 40.5 fl (35.1-43.9); Red Blood Count 4.66 M/mm3 (4.2-5.4); White Blood Count 6.3 K/mm3 (4.4-11.0)
[2023-04-06 10:39] LABS: Anion Gap 5 (5-15); BUN 14 mg/dL (7-18); BUN/Creat Ratio 22.6 RATIO (10-20); Calcium,Total 9.1 mg/dL (8.5-10.1); Chloride 105 mmol/L (98-107); Creatinine, Serum 0.62 mg/dL (0.55-1.02); EST Glomerular Filtration Rate 102 mL/min (>60); Est Glom Filt Rate - Afr Amer 123 mL/min (>60); Glucose 89 mg/dL (74-106); Potassium 4.1 mmol/L (3.5-5.1); Sodium Level 137 mmol/L (136-145)
== END | disposition home or self-care (01) ==
LOC: LAB 08:53
PROVIDERS: PCP Internal Medicine; Referring Provider Urology; Visit Provider Urology
DX: Z01.818 Encounter for other preprocedural examination (principal)
CPT/HCPCS: 36415; 80048; 85027

== ENCOUNTER 2023-04-08 09:02 | Day surgery (SDC) | payer MEDICARE, OTHER, SELFPAY ==
--- NOTE | 2023-04-06 09:12 | EKG12_ITS ---
Test Reason : PREOP Blood Pressure : / mmHG Vent. Rate : 059 BPM Atrial Rate : 059 BPM P-R Int : 116 ms QRS Dur : 080 ms QT Int : 446 ms P-R-T Axes : 068 079 075 degrees QTc Int : 441 ms Sinus bradycardia Junctional ST depression, probably normal Borderline ECG When compared with ECG of 10-JUN-2007 08:02, MANUAL COMPARISON REQUIRED, DATA IS UNCONFIRMED Confirmed by MARSHA BARDALES, KARINA ([id number]), video editor KWABENA SANTOYO ([id number]) on 04/06/2023 2:11:36 PM Referred By: Joy Gee Confirmed By:KARINA LARSON MD
[2023-04-08] VITALS (7 sets, daily range): BP systolic 97–129; BP diastolic 60–75; PULSE 65–72; RESP 16–18; TEMP 36.3–36.6; O2SAT 94–99; BMI 25.4
[2023-04-08] MEDS: Lactated Ringers 1,000 ML 15 ML IV (09:49)
[2023-04-08] MEDS: Cefazolin 2 GM in 0.9% Normal Saline 100 ML IV (10:56)
--- NOTE | 2023-04-08 11:37 | PCM.OPRPT ---
Problems Associated Problem List Diagnoses (1) Renal calculi: Report of Operation Date of Procedure: 04/08/23 Pre-Operative Diagnosis: Right distal ureteral calculus, left renal calculi Post-Operative Diagnosis: Same Surgery/Procedure Performed:: Cystoscopy, right retrograde pyelogram, right ureteroscopy, left renal extracorporal shockwave lithotripsy Surgeon: Joy Gee Type of Anesthesia: General Specimen's removed: None Description of Procedure: The patient is a 67-year-old female who presents after having been evaluated in the office for a distal right ureteral calculus and left renal calculi. Informed consent was obtained. The patient was taken to the operating room and placed on the operating room table. Anesthesia monitored the head, neck, airway, IV access and vital signs throughout the case. Once anesthesia was appropriately administered, the patient was placed into dorsolithotomy position was prepped and draped in usual sterile fashion. The cystoscope was inserted through the urethra into the urinary bladder. The bladder mucosa was visualized in its entirety revealing no evidence of mass, erythema, ulceration or foreign body. The right ureteral orifice was gently intubated with An 8 [place] cone-tip catheter and contrast was injected in retrograde fashion under fluoroscopic visualization. There was question of a filling defect in the distal ureter. At this time a 0.035 Glidewire was passed through the orifice into the renal pelvis. The semirigid ureteroscope was placed alongside the wire and easily advanced up to the renal pelvis with no evidence of stone, foreign body, mass or erythema. The ureteroscope was removed under direct visualization and once again found a normal ureter. No stent was placed. At this time the patient's bladder was emptied and the scope was removed. She was repositioned on the table. Her left renal stones were identified and 2500 shocks were applied to the stones.There appeared to be good fragmentation of the stones at the conclusion of the case. She was awakened and taken to the recovery room in good condition. There were no complications during this procedure. Complications None Admit VTE Documentation VTE Present on Admission: Yes VTE Mechan Device Prophylaxis: SCD's VTE Pharm Prophylaxis ordered?: No Reason prophylaxis not ordered:: Treatment Not Indicated
--- NOTE | 2023-04-08 11:41 | DCINST_ITS ---
Discharge Instructions Diet Discharge Diet: No restrictions Activity Discharge Activity: Return to Normal Activity Dressing / Incision Call your doctor if you observe: Fever of 101 or Higher, Inability to urinate and Inability to have a bowel movement Follow Up Care Please Follow Up With: Joy Gee MD When: The office will call the patient to make arrangements for follow-up Test Results: Test results from this visit will be discussed in further detail at your follow- up appointment, if applicable. Discharge Plan Admission Attending Provider: Joy Gee Primary Care Provider: Salinas Oswald Discharge Orders/Prescriptions Prescriptions: New oxycodone-acetaminophen [Percocet] 5-325 mg tablet 1 tab PO Q8H PRN (Reason: pain) 3 Days Qty: 10 0RF cephalexin [cephalexin] 500 mg capsule 500 mg PO Q12 3 Days Qty: 6 0RF Continued coenzyme Q10 [Co Q-10] 100 mg capsule 100 mg PO DAILY turmeric root extract 1,053 mg tablet 2,600 mg PO DAILY Patient Comments: take 1-2 daily. multivitamin Tablet 1 tablet PO DAILY magnesium oxide 400 mg (241.3 mg magnesium) tablet 400 mg PO BID calcium carbonate [Calcium 600] 600 mg calcium (1,500 mg) tablet 600 mg PO DAILY hydrocortisone 2.5 % cream 1 applic topical BID PRN (Reason: rash) Qty: 453.6 1RF cholecalciferol (vitamin D3) 1,250 mcg (50,000 unit) capsule 1,000 mcg PO DAILY rosuvastatin [Crestor] 10 mg tablet 10 mg PO DAILY Qty: 90 3RF Referrals / Follow Up: Salinas Oswald MD [Primary Care Provider] - Disposition Disposition (needs filled in before D/C Order can be placed): Home, Self Care
== END 2023-04-08 14:16 | disposition home or self-care (01) ==
LOC: SDC 09:03 → AC 09:05
PROVIDERS: PCP Internal Medicine; Referring Provider Urology; Visit Provider Urology
PROC: (CPT 50590; principal; 2023-04-08 10:35)
DX: N13.2 Hydronephrosis with renal and ureteral calculous obstruction (principal); E78.00 Pure hypercholesterolemia, unspecified; Z79.899 Other long term (current) drug therapy; Z87.448 Personal history of other diseases of urinary system; Z98.51 Tubal ligation status
CPT/HCPCS: 50590; 00873; 52005; 93005; J7120; C2617; J2405

== ENCOUNTER → 2023-04-22 | Outpatient (CLI) | payer MEDICARE, OTHER, SELFPAY ==
--- NOTE | 2023-04-22 11:50 | RAD_ITS ---
STUDY: X-RAY - ABDOMEN/PELVIS REASON FOR EXAM: Female, 67 years old. Follow-up of right kidney after ESWL. TECHNIQUE: Single AP view of the abdomen / pelvis on 2 images. COMPARISON: Abdominal x-ray dated March 17, [address] dated May 03, 2017. FINDINGS: Normal visualized lung bases. There is an unremarkable bowel gas pattern. There is no demonstrated free abdominal air. The visualized liver, spleen and kidneys are grossly normal in size and morphology. No definite calcifications overlying either renal shadow. Normal visualized osseous structures. RAD/Abdomen Single View IMPRESSION: No nephrocalcinosis identified. Electronically Signed: Paul Ortiz MD at 14:51 EDT ,
== END | disposition home or self-care (01) ==
LOC: RAD 11:42
PROVIDERS: PCP Internal Medicine; Referring Provider Urology; Visit Provider Urology
DX: N20.0 Calculus of kidney (principal)
CPT/HCPCS: 74018

== ENCOUNTER → 2023-04-23 | Outpatient (CLI) | payer MEDICARE, OTHER, SELFPAY ==
--- NOTE | 2023-04-23 12:36 | BI_ITS ---
MAMMOGRAPHY - BILATERAL SCREENING REASON FOR EXAM: Female, 67 years old. Routine annual screening examination. PERTINENT HISTORY: Non-contributory. Chronic bilateral nipple inversions. TECHNIQUE: Digital bilateral breast chon (3D mammographic acquisition) in the CC and MLO projections. 2-D mediolateral oblique (MLO) and craniocaudad (CC) views of both breasts were obtained. CAD: Full Field Digital Mammography with Computer Added Detection was performed. COMPARISON: Comparison is made with prior study dated April 22, 2022 and December 10, 2020. FINDINGS: Breast Composition: The breasts are heterogeneously dense, which may obscure small masses. There are no dominant masses or suspicious calcifications. Stable benign-appearing bilateral axillary stable bilateral scattered macrocalcifications. No other significant abnormalities are identified. There has been no significant change since the prior study. BI/SCRN MAMM (CAD)W/CHON BILAT IMPRESSION: Stable bilateral screening mammogram. Yearly follow-up mammogram recommended. (A) ASSESSMENT CATEGORY: BIRADS Category 2: Benign. A letter regarding these results will be sent to the patient by the facility within 30 days. Approximately 10% of breast cancers are not detected by mammography. A normal mammogram should not delay biopsy of a clinically suspicious abnormality. [id number] Electronically Signed: Kemal Lizarraga MD at 13:29 EDT ,
== END | disposition home or self-care (01) ==
LOC: OPBI 12:34
PROVIDERS: PCP Internal Medicine; Referring Provider Obstetrics & Gynecology; Visit Provider Obstetrics & Gynecology
DX: Z12.31 Encounter for screening mammogram for malignant neoplasm of breast (principal)
CPT/HCPCS: 77063; 77067

== ENCOUNTER → 2023-11-17 | Outpatient (CLI) | payer MEDICARE, OTHER, SELFPAY ==
--- NOTE | 2023-11-17 12:46 | BD_ITS ---
STUDY: DUAL ENERGY X-RAY ABSORPTIOMETRY / DXA REASON FOR EXAM: Female, 68 years old. Postmenopausal female TECHNIQUE: Bone Mineral Density (BMD) measurements of lumbar spine and bilateral hips were obtained. COMPARISON: Comparison is made with prior study of December 12, 2020. FINDINGS: Lumbar Spine (L1-L4): g/cm2 (1.077) / T-score (0.5) / Z-score (2.5) Findings are suggestive of normal bone density with a low fracture risk. Left Femur Total: g/cm2 (0.922) / T-score (-0.2) / Z-score (1.2) Left Femoral Neck: g/cm2 (0.785) / T-score (-0.6) / Z-score (1.1) Right Femur Total: g/cm2 (0.887) / T-score (-0.4) / Z-score (1.0) The T-Scores on the most recent prior examination were: Lumbar Spine (L1-L4): There has been worsening of bone density since the previous examination. Left Femur Total: which represents a worsening of 1.4%. Right Femur Total: which represents a worsening of 2.3%. BD/Dexa Bone Density Study IMPRESSION: The patient is considered normal as outlined below according to World Jesus Organization (WHO) criteria with a low fracture risk. There has been worsening of bone density since the previous examination. Reference Information: The T-score is the number of standard deviations above or below the standard which is normal for young adults at their peak bone mineral density. The World Health Organization (WHO) interprets the T-scores as follows: Above -1 Normal bone density Between -1 and -2.5 Osteopenia Equal to / or below -2.5 Osteoporosis As a practical clinical guideline, osteopenia may be graded as follows: Mild -1 through -1.5 Moderate -1.6 through -2.0 Severe -2.1 through -2.4 The Z-score is the number of standard deviations above or below age-matched controls. A Z-score of less than -1.5 would be considered abnormal. References: 1. NIH Osteoporosis and Related Bone Diseases www osteo.org 2. International Society for Clinical Densitometry www iscd.org 3. National Osteoporosis Foundation www nof.org Electronically Signed: Kemal Lizarraga MD at 10:39 EDT ,
== END | disposition home or self-care (01) ==
LOC: OPBD 12:45
PROVIDERS: PCP Internal Medicine; Referring Provider Physician Assistant; Visit Provider Physician Assistant
DX: M81.0 Age-related osteoporosis without current pathological fracture (principal)
CPT/HCPCS: 77080

== ENCOUNTER → 2023-11-26 | Outpatient (CLI) | payer MEDICARE, OTHER, SELFPAY ==
[2023-11-26 10:41] LABS: Hematocrit 43.1 % (37-47); Hemoglobin 14.5 g/dL (12.0-15.0); Mean Corp Hgb Conc 33.6 g/dL (32-36); Mean Corpuscular Hgb 29.5 pg (27.0-32.0); Mean Corpuscular Volume 87.8 fL (81-99); Mean Platelet Vol. 9.9 fl (6.2-12.0); Platelet Count 307 K/mm3 (150-450); RBC Distribution Width CV 12.4 % (11.6-14.6); RBC Distribution Width SD 39.7 fl (35.1-43.9); Red Blood Count 4.91 M/mm3 (4.2-5.4); White Blood Count 5.7 K/mm3 (4.4-11.0)
[2023-11-26 11:21] LABS: ALB/GLOB Ratio 0.9 RATIO (0.9-2.4); AST(SGOT) 23 U/L (15-37); Alanine Aminotransfer ALT/SGPT 32 U/L (13-56); Albumin, Serum 3.7 g/dL (3.2-5.0); Alkaline Phosphatase 59 U/L (45-117); Anion Gap 5 (5-15); BUN 13 mg/dL (7-18); BUN/Creat Ratio 18.6 RATIO (10-20); Calcium,Total 9.5 mg/dL (8.5-10.1); Chloride 105 mmol/L (98-107); Cholesterol 158 mg/dL (200); EST Glomerular Filtration Rate 88 mL/min (>60); Est Glom Filt Rate - Afr Amer 107 mL/min (>60); Globulin 4.1 g/dL (2.2-4.2); Glucose 84 mg/dL (74-106); High Density Lipoprotein 71 mg/dL; Potassium 3.8 mmol/L (3.5-5.1); Protein, Total 7.8 g/dL (6.4-8.2); Sodium Level 139 mmol/L (136-145); Triglycerides 81 mg/dL; Very Low Density Lipoprotein 16 mg/dL (5-40)
== END | disposition home or self-care (01) ==
LOC: LAB 09:19
PROVIDERS: PCP Internal Medicine; Referring Provider Physician Assistant; Visit Provider Physician Assistant
DX: Z00.00 Encounter for general adult medical examination without abnormal findings (principal); E78.2 Mixed hyperlipidemia; E55.9 Vitamin D deficiency, unspecified
CPT/HCPCS: 36415; 80053; 80061; 82306; 85027

== ENCOUNTER 2024-01-09 17:02 | Emergency (ER) | payer MEDICARE, OTHER, SELFPAY ==
[2024-01-09 17:03] VITALS: BP 184/94; PULSE 83; RESP 17; TEMP 36.4; O2SAT 98; BMI 25.2
--- NOTE | 2024-01-09 17:19 | EDS_ITS ---
HPI History of Present Illness Chief Complaint: Neuro S/Sx Informant: patient Onset/Context/Timing Onset: Today Context: Gradual Onset Timing: Continuous Quality: Foggy Location: Head Worsened by: Nothing Relieved by: Nothing Narrative Narrative: Patient presents with numbness and tingling in her left forearm and hand that began today. Patient states that this began when she woke up today. Patient states she also felt like she was in a brain fog when she woke up. Patient states she checked her blood pressure at home and it was 182 systolic. Patient denies any chest pain or shortness of breath. Patient denies any nausea or vomiting. Patient denies any visual changes. Patient denies any headaches. [facility] Medical History Anxiety Arthritis Atopic dermatitis Bilateral carotid artery stenosis Carpal tunnel syndrome Diverticulosis Encounter for hepatitis C screening test for low risk patient Health care maintenance High cholesterol History of renal disease Hydronephrosis Hyperlipemia Hyperlipidemia Nasal congestion Non-smoker Osteoarthritis Post-menopausal Renal calculi Restless legs Right flank pain Stenosis of left carotid artery Varicose veins of both lower extremities with pain Vitamin D deficiency Wears contact lenses Wears glasses Home Medications coenzyme Q10 100 mg capsule (Co Q-10) 100 mg PO DAILY 11/25/20 [History Last Taken Unknown] magnesium oxide 400 mg (241.3 mg magnesium) tablet 400 mg PO BID 11/25/20 [History Last Taken Unknown] multivitamin 1 tablet PO DAILY 11/25/20 [History Last Taken Unknown] turmeric root extract 1,053 mg tablet 2,600 mg PO DAILY 11/25/20 [History Last Taken Unknown] calcium carbonate (Calcium 600) 600 mg PO DAILY 05/19/22 [History Last Taken Unknown] hydrocortisone 2.5 % topical cream 1 applic topical BID PRN rash #453.6 grams 05/19/22 [Rx Last Taken Unknown] cholecalciferol (vitamin D3) 1,250 mcg (50,000 unit) capsule 1,000 mcg PO DAILY 02/04/23 [History Last Taken Unknown] rosuvastatin 10 mg tablet (Crestor) 10 mg PO DAILY #90 tabs 11/10/23 [Rx Last Taken Unknown] amlodipine 5 mg tablet 5 mg PO DAILY #14 tabs 01/09/24 [Rx Last Taken Unknown] Allergy/AdvReac Type Severity Reaction Status Date / Time nickel Allergy Intermediate Rash Verified 01/09/24 17:06 Family History Father Brain aneurysm Other Anxiety Diabetes Kidney disease Surgical History H/O lithotripsy History of tubal ligation Hx of LASIK Social History Smoking Status: Never smoker alcohol intake: never substance use type: does not use caffeine: Yes what type of physical activity do you participate in: walking, bicycling and aerobics frequency: 3-4 times per week ROS ROS ED Constitutional Constitutional ED: Denies chills or fever(s) Eyes Eyes: Denies blurry vision or change in vision ENT ENT ED: Denies rhinorrhea or sore throat Cardiovascular Cardiovascular: Denies chest pain or palpitations Respiratory/Chest Respiratory/Chest: Denies cough or dyspnea Gastrointestinal Gastrointestinal: Denies nausea or vomiting Genitourinary Genitourinary ED: Denies dysuria or hematuria Musculoskeletal Musculoskeletal: Denies back pain or neck pain Integumentary Denies abscess or rash Neurologic Neurologic: Reports paresthesias LUE; Denies headache(s) or weakness Allergic/Immunologic Allergic/Immunologic ED: Denies mouth swelling or urticaria EXAM Physical Exam Const Vital Signs: 01/09/24 17:03 01/09/24 17:30 01/09/24 18:40 Temperature 97.6 F L Temperature Source Temporal Pulse Rate 83 75 55 L Respiratory Rate 17 14 13 Blood Pressure 184/94 H 170/72 H 140/67 H Blood Pressure Mean 124 104 91 Pulse Ox 98 97 97 Oxygen Delivery Method Room Air Room Air Room Air 01/09/24 19:19 Temperature Temperature Source Pulse Rate 66 Respiratory Rate 17 Blood Pressure 143/78 H Blood Pressure Mean 99 Pulse Ox 97 Oxygen Delivery Method Room Air Positive well nourished and well developed General Appearance ED: well developed and NAD HEENT Reports moist mucous membranes Neck supple and no JVD Resp normal respiratory effort and clear to auscultation bilaterally Cardio regular rate and regular rhythm GI non-tender and non-distended Palpation: soft Extremity normal to inspection Extremity Narrative: There is full range of motion of the left upper extremity. There is no deformity noted. Sensation was intact to light touch in the radial, median, and ulnar areas. Strength is 5/5 in the radial, median, and ulnar areas. Radial and pedal pulses are equal bilaterally. There is no calf tenderness. There is no edema noted. Neuro oriented x3, CN's II-XII intact bilaterally and no sensory deficits noted Sensorium / Orientation: alert Motor Exam: strength 5/5 throughout Psych mental status grossly normal MDM MDM MDM Narrative Medical decision making narrative: Differential diagnosis includes paresthesias, electrolyte abnormality, hypertensive urgency, uncontrolled hypertension, cardiac dysrhythmia, cardiac ischemia, pneumonia, pulmonary embolism, and anxiety. EKG will be obtained to assess for cardiac dysrhythmia and cardiac ischemia. Chest x-ray will be obtained to assess for pneumonia and widened mediastinum. CBC will be obtained to assess for leukocytosis and anemia. Basic metabolic profile will be obtained to assess for electrolyte abnormality and renal function. High-sensitivity troponin will be obtained to assess for cardiac ischemia. D-dimer will be obtained to assess for pulmonary embolism. Lab Data Attestation: I reviewed the patient's lab results. Lab results narrative: CBC was reviewed and was within normal limits. Basic metabolic profile was reviewed and was essentially within normal limits. High-sensitivity troponin was reviewed and was normal at 15. D-dimer was reviewed and was normal at 0.28. Labs: Laboratory Results - last 24 hr 01/09/24 17:45 WBC 7.6 RBC 4.69 Hgb 14.1 Hct 40.8 MCV 87.0 MCH 30.1 MCHC 34.6 RDW Std Deviation 39.8 RDW Coeff of Jayesh 12.6 Plt Count 315 MPV 9.5 Immature Gran % (Auto) 0.100 Neut % (Auto) 65.3 Lymph % (Auto) 21.4 [place] % (Auto) 6.3 Eos % (Auto) 6.1 H Baso % (Auto) 0.8 Absolute Neuts (auto) 4.9 Absolute Lymphs (auto) 1.62 Nucleated RBC % 0 D-Dimer Quant (PE/DVT) 0.28 Sodium 139 Potassium 3.7 Chloride 108 H Carbon Dioxide 28.0 Anion Gap 3 L BUN 10 Creatinine 0.62 Estim Creat Clear Calc 63.01 Est GFR (MDRD) Af Amer 122 Est GFR (MDRD) Non-Af 101 BUN/Creatinine Ratio 16.0 Glucose 112 H Calcium 9.4 Troponin I High Sens 15 Radiography Chest X-Ray - ED: 2 View, Read by ED Physician, Read by Radiologist and No Acute Disease Diagnostic Testing: Clinical Impression(s) from Imaging Studies Chest X-Ray 01/09/24 18:07 IMPRESSION: No acute pulmonary finding. Electronically Signed: Kwasi Muller MD at 18:28 EDT , PA and lateral chest x-ray was obtained. There are 2 views. On my independent interpretation, lung loza are clear. There is normal cardiac silhouette. Bony thorax is normal. There is no acute process noted. Radiologist also interpreted the x-ray and agrees. EKG Initial EKG: Attestation: I personally reviewed and interpreted this EKG as follows: Interpretation: Sinus Rhythm (68) and No Acute Injury Pattern Comments: EKG was obtained. On my independent interpretation, it showed a normal sinus rhythm with a rate of 68. VT interval, QRS interval, and QTc intervals were all normal. [place] was normal. There are no acute ST or T wave changes. Prior EKG tracings: available for review Prior: Unchanged (04/06/2023) Treatment and Re-Evaluation :: Patient was given a dose of clonidine here. Patient's blood pressure improved to 143/78 after this. Patient was feeling better. Patient states her left arm tingling has resolved. Patient was given a prescription for Norvasc. Patient was instructed to continue to monitor her blood pressures. Patient was instructed to follow-up with her primary care physician in 5 to 7 days. Patient was instructed return if worse in any way. Patient understood and was agreeable with the plan. All questions were answered. Discharge Plan Triage Chief Complaint: Neuro S/Sx ED Provider: Karl Butler Dx/Rx/DC Orders Clinical Impression: Arm paresthesia, left, Hypertension Instructions: ED Hypertension New Begin Treatment, ED Paraesthesias Prescriptions: New amlodipine 5 mg tablet 5 mg PO DAILY Qty: 14 0RF No Action coenzyme Q10 [Co Q-10] 100 mg capsule 100 mg PO DAILY turmeric root extract 1,053 mg tablet 2,600 mg PO DAILY Patient Comments: take 1-2 daily. multivitamin Tablet 1 tablet PO DAILY magnesium oxide 400 mg (241.3 mg magnesium) tablet 400 mg PO BID calcium carbonate [Calcium 600] 600 mg calcium (1,500 mg) tablet 600 mg PO DAILY hydrocortisone 2.5 % cream 1 applic topical BID PRN (Reason: rash) Qty: 453.6 1RF cholecalciferol (vitamin D3) 1,250 mcg (50,000 unit) capsule 1,000 mcg PO DAILY rosuvastatin [Crestor] 10 mg tablet 10 mg PO DAILY Qty: 90 3RF Primary Care Provider: Salinas Oswald Referrals: Salinas Oswald MD [Primary Care Provider] - 5-7 Days Disposition Disposition: Home, Self Care
[2024-01-09 17:29] VITALS: BMI 25.2
[2024-01-09 17:30] VITALS: BP 170/72; PULSE 75; RESP 14; O2SAT 97
--- NOTE | 2024-01-09 17:34 | EKG12_ITS ---
Test Reason : NEURO Blood Pressure : / mmHG Vent. Rate : 068 BPM Atrial Rate : 068 BPM P-R Int : 156 ms QRS Dur : 096 ms QT Int : 414 ms P-R-T Axes : 072 071 051 degrees QTc Int : 440 ms Normal sinus rhythm with sinus arrhythmia Normal ECG Confirmed by MARSHA BARDALES, KARINA ([id number]), make up editor [address] ([id number]) on 01/10/2024 9:41:40 AM Referred By: Confirmed By:KARINA LARSON MD
[2024-01-09 17:56] LABS: Absolute Lymphocyte Count 1.62 X10^3/uL (0.83-4.51); Absolute Neutrophil Count 4.9 X10^3/uL (2.0-7.7); Basophil# 0.06 X10^3/uL; Basophil% 0.8 % (0-1); Eosinophil# 0.46 X10^3/uL; Eosinophils% 6.1 % (0-5); Hematocrit 40.8 % (37-47); Hemoglobin 14.1 g/dL (12.0-15.0); Lymphocyte # 1.62 X10^3/ul (0.83-4.51); Lymphocyte % 21.4 % (19-41); Mean Corp Hgb Conc 34.6 g/dL (32-36); Mean Corpuscular Hgb 30.1 pg (27.0-32.0); Mean Platelet Vol. 9.5 fl (6.2-12.0); Monocyte# 0.48 X10^3/uL; Monocyte% 6.3 % (0-10); NRBC Flagged by Analyzer 0 % (0-5); Neutrophil # 4.94 X10^3/uL (2.7-7.7); Neutrophil % 65.3 % (47-70); Platelet Count 315 K/mm3 (150-450); RBC Distribution Width CV 12.6 % (11.6-14.6); RBC Distribution Width SD 39.8 fl (35.1-43.9); Red Blood Count 4.69 M/mm3 (4.2-5.4); White Blood Count 7.6 K/mm3 (4.4-11.0)
[2024-01-09] MEDS: cloNIDine HCl 0.1 MG Tablet PO (18:03)
--- NOTE | 2024-01-09 18:07 | RAD_ITS ---
INDICATION: Hypertension EXAMINATION/TECHNIQUE: X-RAY - XR Chest 2 Views COMPARISON: No relevant prior comparison study available FINDINGS: LINES/DEVICES: None. LUNGS: The lungs are well expanded. No consolidation, edema or effusion. No pneumothorax. MEDIASTINUM AND CARDIOVASCULAR STRUCTURES: Cardiac silhouette not enlarged. Aorta is tortuous and atherosclerotic. Central airways and mediastinal contour are unremarkable. BONES AND SOFT TISSUES: No acute osseous abnormalities. RAD/Chest PA and Lateral IMPRESSION: No acute pulmonary finding. Electronically Signed: Kwasi Muller MD at 18:28 EDT ,
[2024-01-09 18:13] LABS: Anion Gap 3 (5-15); BUN 10 mg/dL (7-18); Calcium,Total 9.4 mg/dL (8.5-10.1); Chloride 108 mmol/L (98-107); Creatinine, Serum 0.62 mg/dL (0.55-1.02); D-Dimer Quantitative (DVT/PE) 0.28 FEU/ug/m (0.27-0.49); EST Glomerular Filtration Rate 101 mL/min (>60); Est Glom Filt Rate - Afr Amer 122 mL/min (>60); Estimated Creatinine Clearance 63.01 ml/min; Glucose 112 mg/dL (74-106); Potassium 3.7 mmol/L (3.5-5.1); Sodium Level 139 mmol/L (136-145); Troponin-I HS 15 pg/mL (3.0-54.0)
[2024-01-09 18:40] VITALS: BP 140/67; PULSE 55; RESP 13; O2SAT 97
[2024-01-09 19:19] VITALS: BP 143/78; PULSE 66; RESP 17; O2SAT 97
[2024-01-09 19:44] VITALS: BP 138/69; PULSE 54; RESP 16; TEMP 36.7; O2SAT 97
== END 2024-01-09 19:53 | disposition home or self-care (01) ==
PROVIDERS: Emergency Provider Emergency Medicine; PCP Internal Medicine; Visit Provider Emergency Medicine
DX: R20.2 Paresthesia of skin (principal); I10 Essential (primary) hypertension; R20.0 Anesthesia of skin; E78.00 Pure hypercholesterolemia, unspecified; Z79.899 Other long term (current) drug therapy
CPT/HCPCS: 71046; 80048; 84484; 85025; 85379; 93005; 99285; A4216

== ENCOUNTER → 2024-05-16 | Outpatient (CLI) | payer MEDICARE, OTHER, SELFPAY ==
--- NOTE | 2024-05-16 12:59 | BI_ITS ---
MAMMOGRAPHY - BILATERAL SCREENING REASON FOR EXAM: Female, 68 years old. Routine annual screening examination. PERTINENT HISTORY: Non-contributory. Chronic inversion of both nipples. TECHNIQUE: Digital bilateral breast chon (3D mammographic acquisition) in the CC and MLO projections. 2-D mediolateral oblique (MLO) and craniocaudad (CC) views of both breasts were obtained. CAD: Full Field Digital Mammography with Computer Added Detection was performed. COMPARISON: Comparison is made with prior study April 23, 2023 and April 22, 2022. FINDINGS: Breast Composition: The breasts are heterogeneously dense, which may obscure small masses. There are no dominant masses or suspicious calcifications. Stable appearance of the scattered bilateral microcalcifications. No other significant abnormalities are identified. There has been no significant change since the prior study. BI/SCRN MAMM (CAD)W/CHON BILAT IMPRESSION: Stable bilateral screening mammogram. Yearly follow-up mammogram recommended. (A) ASSESSMENT CATEGORY: BIRADS Category 2: Benign. A letter regarding these results will be sent to the patient by the facility within 30 days. Approximately 10% of breast cancers are not detected by mammography. A normal mammogram should not delay biopsy of a clinically suspicious abnormality. [id number] Electronically Signed: Kemal Lizarraga MD at 14:01 EDT ,
== END | disposition home or self-care (01) ==
LOC: OPBI 12:58
PROVIDERS: PCP Internal Medicine; Referring Provider Obstetrics & Gynecology; Visit Provider Obstetrics & Gynecology
DX: Z12.31 Encounter for screening mammogram for malignant neoplasm of breast (principal)
CPT/HCPCS: 77063; 77067

== ENCOUNTER → 2025-06-19 | Outpatient (CLI) | payer MEDICARE, OTHER, SELFPAY ==
--- NOTE | 2025-06-19 12:40 | BI_ITS ---
EXAM: SCRN MAMM (CAD)W/CHON BILAT DATE: 06/19/2025 CLINICAL HISTORY: F, Age 69 y/o , SCREENING No family history. Chronic bilateral nipple inversion. TECHNIQUE: Procedure Code: [id number] Modality: MG Procedure: SCRN MAMM (CAD)W/CHON BILAT COMPARISON: Prior exam(s) dated May 16, 2024.. FINDINGS: TISSUE DENSITY: The breasts are heterogeneously dense, which may obscure small masses. Bilateral Breast Mammographic Findings: No significant masses, calcifications or other abnormalities are identified. Stable bilateral scattered microcalcifications. Stable bilateral fat containing axillary lymph nodes. No suspicious masses, areas of developing architectural distortion, or suspicious calcifications. There has been no significant interval change. BI/SCRN MAMM (CAD)W/CHON BILAT IMPRESSION: Stable bilateral screening mammogram. OVERALL FINAL ASSESSMENT BI-RADS 2: BENIGN RECOMMENDATION: Routine annual follow-up in 1 Year Additional Recommendation none A letter with findings and recommendations will be mailed to the patient. Reading Location: [place] [id number]
--- NOTE | 2025-06-19 12:40 | BI_ITS ---
EXAM: SCRN MAMM (CAD)W/CHON BILAT DATE: 06/19/2025 CLINICAL HISTORY: F, Age 69 y/o , SCREENING No family history. Chronic bilateral nipple inversion. TECHNIQUE: Procedure Code: [id number] Modality: MG Procedure: SCRN MAMM (CAD)W/CHON BILAT COMPARISON: Prior exam(s) dated May 16, 2024.. FINDINGS: TISSUE DENSITY: The breasts are heterogeneously dense, which may obscure small masses. Bilateral Breast Mammographic Findings: No significant masses, calcifications or other abnormalities are identified. Stable bilateral scattered microcalcifications. Stable bilateral fat containing axillary lymph nodes. No suspicious masses, areas of developing architectural distortion, or suspicious calcifications. There has been no significant interval change. BI/SCRN MAMM (CAD)W/CHON BILAT IMPRESSION: Stable bilateral screening mammogram. OVERALL FINAL ASSESSMENT BI-RADS 2: BENIGN RECOMMENDATION: Routine annual follow-up in 1 Year Additional Recommendation none A letter with findings and recommendations will be mailed to the patient. Reading Location: [place] [address]
== END | disposition home or self-care (01) ==
PROVIDERS: PCP Internal Medicine; Referring Provider Obstetrics & Gynecology; Visit Provider Obstetrics & Gynecology
DX: Z12.31 Encounter for screening mammogram for malignant neoplasm of breast (principal)
CPT/HCPCS: 77063; 77067